=== PATIENT | female | born 2000 | race Caucasian/White ===

== ENCOUNTER 2023-12-05 02:31 | Inpatient (IN) | payer SELFPAY ==
[~2023-12-05] VITALS: Ht 182.9 cm; Wt 100.0 kg
[2023-12-05] VITALS (8 sets, daily range): BP systolic 95–119; BP diastolic 54–68; PULSE 73–85; TEMP 98.3–99.6
[2023-12-05 03:13] LABS: HEMATOCRIT 39.9 % (37.0-47.0); HEMOGLOBIN 13.6 g/dl (12.5-16.0); MEAN CELL VOLUME 82 fl (80.0-100.0); MEAN CORPUSCULAR HEMOGLOBIN 28 pg (27-31); MEAN CORPUSCULAR HGB CONC 34 g/dl (33.0-37.0); MEAN PLATELET VOLUME 9.1 fl (7.4-10.4); PLATELET COUNT 475 K/mm3 (130-400); RED BLOOD COUNT 4.85 M/mm3 (4.10-5.30); REDCELL DISTRIBUTION WIDTH-CV 13.2 % (11.5-14.5)
[2023-12-05 03:19] LABS: INR 1.2 (0.8-3.0); PROTHROMBIN TIME 12.8 SECONDS (9.7-12.8)
[2023-12-05 03:33] LABS: PARTIAL THROMBOPLASTIN TIME 25.2 SECONDS (26.0-37.0)
[2023-12-05 03:35] LABS: ALANINE AMINOTRANSFERASE 50 U/L (0-55); ALKALINE PHOSPHATASE 126 U/L (40-150); ANION GAP 14 mmol/L (7-16); AST,SGOT 15 U/L (5-34); BILIRUBIN,TOTAL 0.5 mg/dL (0.2-1.2); BLOOD UREA NITROGEN 7 mg/dL (7-19); CALCIUM 9.4 mg/dL (8.4-10.2); CARBON DIOXIDE 23 mmol/L (22-29); CHLORIDE 100 mmol/L (98-107); CREATININE, serum 0.84 mg/dL (0.57-1.11); GLUCOSE 119 mg/dL (70-99); LIPASE 41 U/L (8-78); SODIUM 137 mmol/L (136-145); TOTAL PROTEIN 7.7 gm/dL (6.2-8.1)
[2023-12-05 03:53] LABS: TROPONIN-I < 0.010 ng/mL (0.00-0.033)
[2023-12-05 04:04] LABS: BAND 3 % (0-10); LYMPHOCYTE 28 % (20.0-51.0); NEUTROPHILS 66 % (42.0-75.2); PLATELET ESTIMATE INCREASED (NORMAL)
[2023-12-05 05:33] LABS: COLLECTION METHOD CLEAN CATCH
[2023-12-05 05:45] LABS: URINE APPEARANCE Clear (CLEAR/HAZY); URINE BLOOD Negative (NEGATIVE); URINE COLOR Yellow (YELLOW); URINE GLUCOSE Negative (NEGATIVE); URINE KETONE Negative (NEGATIVE); URINE NITRATE Negative (NEGATIVE); URINE PROTEIN(semi-quant) Negative (NEGATIVE); URINE UROBILINOGEN 0.2 E.U/dL (0.2-1.0)
[2023-12-05 05:55] LABS: MUCOUS Present (NOT PRESENT); URINE BACTERIA Rare /hpf (NONE SEEN); URINE RBC 0-2 /hpf (0-2)
[2023-12-05 06:13] LABS: GLUCOSE,CSF 61 mg/dL (40-70); TOTAL PROTEIN,CSF 24 mg/dL (15-45)
[2023-12-05 07:01] LABS: CSF APPEARANCE CLEAR; CSF COLOR COLORLESS; CSF RBC 157 /mm3 (0-0)
[2023-12-05 07:03] LABS: CSF APPEARANCE CLEAR; CSF COLOR COLORLESS; CSF RBC 87 /mm3 (0-0)
[2023-12-05 08:16] LABS: CSF MONONUCLEAR 26 % (70-100); CSF POLYMORPHONUCLEAR 68 % (0-6); CSF POLYMORPHONUCLEAR 74 % (0-6)
[2023-12-05 08:17] LABS: CSF MONONUCLEAR 32 % (70-100)
--- NOTE | 2023-12-05 09:27 | NUR ---
PT ARRIVED TO ROOM 306 APPROX 0740. PT A&OX4 NO COMPLAINT OF PAIN ON ASSESSMENT. STATED HEADACHE IS MUCH BETTER SINCE BEING IN THE ED. PT AMBULATES WELL INDEPENDENTLY. STATES SHE HAS HAD GENERAL MYLAGIA FOR SEVERAL DAYS, HEADACHE, COUGH, AND NAUSEA. HOSPITALIST IN TO VISIT WITH PT THIS MORNING.
--- NOTE | 2023-12-05 14:50 | NUR ---
PT COMPLAINT OF HEADACHE COMING BACK. PRN ROXYCODONE GIVEN, INEFFECTIVE. PT STATED THE TORADOL SHE GOT IN THE ER SEEMED TO HELP THIS MORNING. CALL PLACED TO HOSPITALIST. ORDER FOR TORADOL 15MG IV Q8HR PRN GIVEN.
--- NOTE | 2023-12-05 16:36 | NUR ---
disposal worker attempted to contact patient to complete discharge planning. Patient did not answer her phone. SW left a voicemail.
--- NOTE | 2023-12-05 20:20 | NUR ---
PATIENT RESTING IN BED WITH BOYFRIEND AT BEDSIDE WITH NO ACUTE DISTRESS NOTED. PATIENT ON ROOM AIR. VITAL SIGNS AND ASSESSMENT COMPLETED AT THIS TIME. PATINET TOLERATED WELL. PATIENT C/O HEADACHE. PATIENT STATES PAIN LEVEL IS 6 ON SCALE OF 0 TO 10. IV MORPHINE GIVEN PER MD ORDER. PATIENT REQUESTED GATORAIDE AND WAS GIVEN. ALL NEEDS MET. BED IN LOW POSITION WITH WHEELS LOCKED WITH RAILS UP X2 AND CALL LIGHT WITHIN REACH.
[2023-12-06] VITALS (20 sets, daily range): BP systolic 102–146; BP diastolic 58–69; PULSE 60–89; TEMP 97.6–100.2
[2023-12-06 07:48] LABS: MEAN CELL VOLUME 81 fl (80.0-100.0); MEAN CORPUSCULAR HGB CONC 34 g/dl (33.0-37.0); MEAN PLATELET VOLUME 9.1 fl (7.4-10.4); RED BLOOD COUNT 3.85 M/mm3 (4.10-5.30); REDCELL DISTRIBUTION WIDTH-CV 13.7 % (11.5-14.5)
[2023-12-06 07:55] LABS: HEMATOCRIT 31.2 % (37.0-47.0); HEMOGLOBIN 10.7 g/dl (12.5-16.0); MEAN CORPUSCULAR HEMOGLOBIN 28 pg (27-31); PLATELET COUNT 359 K/mm3 (130-400)
[2023-12-06 08:09] LABS: CALCIUM 8.4 mg/dL (8.4-10.2); CREATININE, serum 0.74 mg/dL (0.57-1.11); MAGNESIUM 1.6 mg/dL (1.6-2.6); POTASSIUM 3.7 mmol/L (3.5-4.5)
[2023-12-06 09:03] LABS: BAND 2 % (0-10); LYMPHOCYTE 17 % (20.0-51.0); METAMYELOCYTE 1 % (0-0); MYELOCYTE 1 % (0-0); OVALOCYTES 1+; PLATELET ESTIMATE NORMAL (NORMAL)
[2023-12-06 09:05] LABS: NEUTROPHILS 73 % (42.0-75.2)
--- NOTE | 2023-12-06 16:29 | NUR ---
gas worker contacted patient to discuss discharge planning. Patient lives in [place] and her best point of contact is her significant other, Maninder, P# [phone]. Patient does not have insurance or a PCP. NOHEMI explained [facility] and provided patient's nurse the information for when patient discharges to ensure her follow up appointment is scheduled there. Preferred pharmacy is [facility]. [facility] does not currently have a DPOA-HC or DME. Patient is able to drive or her significant other can take her to appointments. Patient would like to return home at time of discharge. Discharge plan: Home
--- NOTE | 2023-12-06 20:55 | NUR ---
PATIENT RESTING IN BED SAMMY FREDERICK AT BEDSIDE WITH NO ACUTE DISTRESS NOTED. PATIENT ON ROOM AIR. MEDICATION ADMINISTRATION COMPLETED AT THIS TIME. PATIENT TOELRATED WELL. ALL NEEDS MET. BED IN LOW POSITION WITH WHEELS LOCKED WITH RAILS UP X2 AND CALL LIGHT WITHIN REACH.
--- NOTE | 2023-12-06 23:07 | NUR ---
PATIENT RESTING IN BED WITH TV OFF WITH NO FAMILY PRESENT WITH NO ACUTE DISTRESS NOTED. PATIENT ON ROOM AIR. ASSESSMENT COMPLETED AT THIS TIME. PATIENT TOLERATED WELL. PATIENT C/O HEADACHE. WHEN ASKED PATIENT STATED "FITTER/WELDER HELPED A LITTLE BUT HEADACHE WAS STILL BAD." PATIENT DENIES ANY NEEDS AT THIS TIME. BED IN LOW POSITION WITH WHEELS LOCKED WITH RAILS UP X3 AND CALL LIGHT WITHIN REACH.
[2023-12-07] VITALS (12 sets, daily range): BP systolic 114–137; BP diastolic 63–82; PULSE 62–80; TEMP 98.3–99.5
--- NOTE | 2023-12-07 06:30 | NUR ---
PATIENT RESTING IN BED WITH ALL LIGHTS OFF WITH FAMILY AT BEDSIDE. ROCPHINE AND PROTONIX GIVEN. PATIENT TOLERATED WELL. WOOLING MACHINE OPERATOR CLEARED. PATIENT DENIES ANY NEEDS AT THIS TIME. PATIENT RESTED AT INTERVALS ALL NIGHT. BED IN LOW POSITION WITH WHEELS LOCKED WITH RAILS UP X2 AND CALL LIGHT WITHIN REACH.
--- NOTE | 2023-12-07 08:49 | NUR ---
Patient awake, alert and oriented. Resting in bed. C/O mild pain in her head, improving. [employer] pump in place, IV in place, no red/tenderness noted. Denies shortness of breath or nausea, passing gas but states she has not had a BM during the hospital admission. Bed in lowest position with call light within reach, family member in the room. Denies further needs at this time.
--- NOTE | 2023-12-07 11:20 | NUR ---
MANAGER [employer] discontinued per order, excess morphine wasted. x1 episode of emesis, PRN antiemetic given with improvement.
[2023-12-07 11:40] LABS: HEMOGLOBIN 11.3 g/dl (12.5-16.0); MEAN CELL VOLUME 82 fl (80.0-100.0); MEAN CORPUSCULAR HEMOGLOBIN 27 pg (27-31); MEAN CORPUSCULAR HGB CONC 34 g/dl (33.0-37.0); MEAN PLATELET VOLUME 8.8 fl (7.4-10.4); PLATELET COUNT 387 K/mm3 (130-400); RED BLOOD COUNT 4.13 M/mm3 (4.10-5.30); REDCELL DISTRIBUTION WIDTH-CV 13.2 % (11.5-14.5)
[2023-12-07 11:49] LABS: HEMATOCRIT 33.7 % (37.0-47.0)
[2023-12-07 11:55] LABS: CALCIUM 8.8 mg/dL (8.4-10.2); CREATININE, serum 0.68 mg/dL (0.57-1.11); POTASSIUM 3.7 mmol/L (3.5-4.5)
[2023-12-07 12:32] LABS: LYMPHOCYTE 15 % (20.0-51.0); METAMYELOCYTE 2 % (0-0); MYELOCYTE 0 % (0-0); NEUTROPHILS 78 % (42.0-75.2)
[2023-12-07 12:33] LABS: PLATELET ESTIMATE NORMAL (NORMAL)
--- NOTE | 2023-12-07 20:00 | NUR ---
UPON SHIFT ASSESSMENT, YANCY WAS UP IN BED WITH BOYFRIEND BEDSIDE. SHE IS AXO X 4 BUT SUBDUED IN DEMEANOR. VS ARE WNL-TEMP 99.5, APICAL HR 97. NEUROS GOOD. SHE C/O OF 3/10 TENSION ARAGON-TOLERABLE. WILL REASSESS. CALL LIGHT WITHIN REACH
[2023-12-08] VITALS (12 sets, daily range): BP systolic 111–127; BP diastolic 65–82; PULSE 52–91; TEMP 98.1–99.4
--- NOTE | 2023-12-08 05:28 | NUR ---
PATIENT HAD EPISODE OF VOMMITTING FOLLOWING ADMINISTERATION OF SCHEDULED TYLENOL AND SIN. GAVE JOSE GILFRAN AND WILL REASSESS PAIN.
[2023-12-08 07:31] LABS: HEMOGLOBIN 11.6 g/dl (12.5-16.0); MEAN CELL VOLUME 82 fl (80.0-100.0); MEAN CORPUSCULAR HEMOGLOBIN 28 pg (27-31); MEAN CORPUSCULAR HGB CONC 33 g/dl (33.0-37.0); MEAN PLATELET VOLUME 8.8 fl (7.4-10.4); PLATELET COUNT 379 K/mm3 (130-400); RED BLOOD COUNT 4.21 M/mm3 (4.10-5.30); REDCELL DISTRIBUTION WIDTH-CV 13.5 % (11.5-14.5)
[2023-12-08 07:39] LABS: HEMATOCRIT 34.7 % (37.0-47.0)
[2023-12-08 07:54] LABS: CALCIUM 8.8 mg/dL (8.4-10.2); CREATININE, serum 0.71 mg/dL (0.57-1.11); POTASSIUM 4.2 mmol/L (3.5-4.5)
[2023-12-08 09:13] LABS: BAND 1 % (0-10); LYMPHOCYTE 11 % (20.0-51.0); NEUTROPHILS 82 % (42.0-75.2)
[2023-12-08 09:14] LABS: PLATELET ESTIMATE NORMAL (NORMAL)
--- NOTE | 2023-12-08 09:20 | NUR ---
PATIENT ALERT AND ORIENTED BUT SLIGHTLY DROWSY THIS MORNING. PATIENT REPORTS VOMITING EARLIER THIS MORNING. PATIENT REPORTS THAT HEADACHE STILL REMAINS AND WHEN ASKED IF MORPHINE HELPED SHE REPORTS SOMETIMES. PATIENT IS ON ROOM AIR. PATIENT BOYFRIEND REPORTS PATIENT HAS HAD POOR APPETITE AND NOT DRINKING MUCH. PATIENT REMAINS IN BED MOST OF THE TIME. PATIENT ARAGON IS RATED AT A 5/10. PATIENT CALL LIGHT WITHIN REACH AND BED AT LOWEST POSITION.
--- NOTE | 2023-12-08 12:55 | NUR ---
PATIENT REPORTS HEADCHE PAIN AND REQUEST TO HAVE HER PRN MEDICATION. PATIENT WAS ASSESSED BECAUSE OF HER PREVIOUS LEFT FOOT WEAKNESS AND PATIENT HAD MORE WEAKNESS THAN THIS PREVIOUS MORNING DURING SHIFT ASSESSMENT. ALSO PATIENT HAD LEFT FOOT DROP PRESENT. PROVIDER WAS NOTIFIED. WHEN PATIENT BOYFRIEND WAS ASKED HE REPORTED THAT HER WEAKNESS WAS INCREASING MORE AND THAT NOW EVEN WHEN SHE GETS UP HER LEG IS NO LONGER STRONG OR FLAT ON FLOOR IT PREVIOUSLY HAD BEEN. PATIENT IS EXPERIENCING A RASH ON HER BACK AND BACK OF HER NECK. PATIENT BOYFRIEND REPORTS PATIENT HAD IT DURING THE NIGHT. PATIENT REPORTS ITS ITCHY AT TIMES. MEDICATION WAS GIVEN FOR THE RASH. CALL LIGHT WITHIN REACH. BED AT LOWEST POSITION.
--- NOTE | 2023-12-08 17:00 | NUR ---
PATIENT WAS UNEASY IN BED. PATIENT STARTED TO CRY AND DID NOT FEEL WELL. PATIENT HAD DISCOMFORT AND EMOTIONAL APPREHENSION. PATIENT WAS UNABLE TO RELAX OR BE STILL IN BED. PATIENT WAS RESTLESS. ATIVAN WAS ORDERED TO HELP PATIENT'S DISTRESS AND GIVEN PER .
--- NOTE | 2023-12-08 18:40 | NUR ---
PATIENT REMAINS UNABLE TO RELAX, PATIENT'S WEAKNESS IS INCREASING. PATIENT BOYFRIED AT BEDSIDE. STILL WAITING ON WHEN THE TRANSFER IS GOING TO HAPPEN. PATIENT IS NO LONGER ABLE TO SUSTAIN HER WEIGHT AND IS VERY UNSTEADY. PATIENT HAD TWO INCONTINENT EPISODES.WHEN PATIENT HAD A BED JAY ON PATIENT REPORTED WANTING TO URINATE BUT UNABLE TO DO SO AT THAT TIME. LATER PATIENT WET THE BED. PATIENT REMAINS UNCONSOLABLE AND UNCOMFORTABLE. BOYFRIED AT BEDSIDE. CALL LIGHT WITHIN REACH.BED AT LOWEST POSITION.
--- NOTE | 2023-12-08 19:30 | NUR ---
Patient resting in bed with boyfriend at bedside. Still waiting transport at this time. Patient is very drowsy but is still oriented x4. Pupils equal and reactive. Hand assisted living associate strong and equal. Left foot with drop foot, unable to press or pull but can still feet sensation. Able to push and pull with right foot. Assessment complete. Still states she has a bad headache. IV in left AC flushes easily with no complicaitons. Call light and personal items in reach. Bed in low position. Questions answered at this time.
--- NOTE | 2023-12-08 23:20 | NUR ---
Hospitalist Tiki contacted and notified of patients right foot beginning to angle inward as well as decreasing strength. Stated she would come and assess the patient.
[2023-12-09 01:04] VITALS: BP_SYST 118
--- NOTE | 2023-12-09 01:41 | NUR ---
Report and packet given to EMS staff transferring patient. All questions answered. Patient left the unit via EMS at this time. 0.5mg IV Ativan given to aid in transportation.
--- NOTE | 2023-12-09 02:10 | NUR ---
Report called and give to ANABELA Holland. All questions answered at this time.
== END 2023-12-09 01:41 | disposition short-term general hospital (02) | DRG 97 ==
LOC: COL.ER 02:31 → MEDICAL 06:11
PROVIDERS: Emergency Medicine; Internal Medicine; Physician Assistant; ADMIT Hospitalist
PROC: 009U3ZX Drainage of Spinal Canal, Percutaneous Approach, Diagnostic (ICD-10-PCS; principal; 2023-12-05)
DX: G03.0 Nonpyogenic meningitis (principal); G06.0 Intracranial abscess and granuloma; G06.2 Extradural and subdural abscess, unspecified; M21.372 Foot drop, left foot; E87.6 Hypokalemia; D75.839 Thrombocytosis, unspecified; D64.9 Anemia, unspecified; D72.829 Elevated white blood cell count, unspecified; M79.10 Myalgia, unspecified site; Z20.822 Contact with and (suspected) exposure to COVID-19; K59.00 Constipation, unspecified; R21 Rash and other nonspecific skin eruption; Z23 Encounter for immunization
CPT/HCPCS: A9575; J0133; J0696; J0780; J1100; J1200; J1885; J2060; J2185; J2270; J2405; J3370; J7030; J7050; J7070; Q3014

== ENCOUNTER → 2024-01-25 | Outpatient (CLI) | payer SELFPAY ==
[~2024-01-25] MED LIST: BENADRYL25 M2 PO; FLAGYL 500500 MG/100 IV; Gadoterate 20 ML VIAL IV ONE; IBU800 M1 PO; KEPPRA 500MG500 MG PO; ROCEPHIN VIA1 G/VIAL IJ; TYLENOL 500MG500 MG PO
== END ==
LOC: COL.RAD 13:07
DX: G06.0 Intracranial abscess and granuloma (principal)
CPT/HCPCS: A9575